=== PATIENT | male | born 1965 | race Caucasian/White ===

== ENCOUNTER 2022-10-27 15:50 | Outpatient (REF) | payer SELFPAY ==
[2022-10-27 21:21] LABS: Abs Immature Grans 0.02 10^3/uL (0.0-0.06); Absolute Eosinophil Count 0.05 10^3/uL (0.0-0.7); Absolute Lymphocyte Count 1.68 10^3/uL (1.2-3.4); Basophils % 0.6; Eosinophils % 0.5; HCT 46.2 % (40.0-50.0); HGB 15.8 g/dL (13.5-17.5); Immature Grans % 0.2; Lymphocytes % 15.5; MCH 31.7 pg (27.0-33.0); MCHC 34.2 % (32.0-36.0); MCV 93 fL (80-95); MPV 11.7 fL (8.0-11.0); Monocytes % 9.8; Neutrophils % 73.4; Platelet Count 273 10^3/uL (130-400); RBC 4.98 10^6/uL (4.36-5.78); RDW 12.4 % (11.8-14.1); RDW-SD 42.6 fL; WBC 10.87 10^3/uL (4.4-10.8)
[2022-10-27 21:23] LABS: Absolute Basophil Count 0.07 10^3/uL (0.0-0.2); Absolute Monocyte Count 1.07 10^3/uL (0.1-0.8); Absolute Neutrophil Count 7.98 10^3/uL (1.2-6.7)
[2022-10-27 21:24] LABS: ESR 6 mm/hr (0-20)
[2022-10-27 21:35] LABS: ALT 29 U/L (16-63); AST 31 U/L (15-37); Alkaline Phosphatase 80 U/L (46-116); Amylase 42 U/L (25-115); Anion Gap 11.4 mmol/L (3-11); BUN 9 mg/dL (7-18); Bilirubin, Total 0.3 mg/dL (0.2-1.0); CO2 23.6 mmol/L (21.0-32.0); CREATININE 0.8 mg/dL (0.70-1.30); Chloride 101 mmol/L (98-107); Estimated GFR 103.22 (mL/min/1.73m2); Glucose 78 mg/dL (74-106); Lipase 35 U/L (16-77); Potassium 4.4 mmol/L (3.5-5.1); Sodium 136 mmol/L (136-145); Total Protein 7.9 g/dL (6.4-8.2)
== END 2022-10-27 15:51 | disposition home or self-care (01) ==
LOC: LBN 15:50
PROVIDERS: Visit Provider Nurse Practitioner Family
DX: R11.2 Nausea with vomiting, unspecified (principal)
CPT/HCPCS: 80053; 83690; 85652; 82150; 85025